=== PATIENT | male | born 1985 | race Caucasian/White ===

== ENCOUNTER 2016-09-14 16:25 | Emergency (ER) | payer OTHER ==
[~2016-09-14] VITALS: Ht 177.8 cm; Wt 75.0 kg
[2016-09-14] MEDS ORDERED: BACITRACIN 0.9 GM PACKET OINTMENT TP ONE (17:00)
[2016-09-14 18:14] VITALS: BP 127/82
== END 2016-09-14 18:17 | disposition home or self-care (01) ==
LOC: EMS 16:26 → EEVIPCON 16:26 → EMS 18:17
DX: S21.211A Laceration without foreign body of right back wall of thorax without penetration into thoracic cavity, initial encounter (principal); Z02.89 Encounter for other administrative examinations; W26.9XXA Contact with unspecified sharp object(s), initial encounter; Y93.89 Activity, other specified; Y92.89 Other specified places as the place of occurrence of the external cause; Y99.8 Other external cause status
CPT/HCPCS: 99283

== ENCOUNTER 2018-01-05 01:03 | Emergency (ER) | payer SELFPAY ==
[~2018-01-05] VITALS: Ht 177.8 cm; Wt 81.8 kg
[2018-01-05 03:47] VITALS: BP 116/60
== END 2018-01-05 04:36 | disposition home or self-care (01) ==
LOC: EMS 01:04
DX: L70.0 Acne vulgaris (principal); F17.210 Nicotine dependence, cigarettes, uncomplicated
CPT/HCPCS: 99281; 99406

== ENCOUNTER 2024-06-07 05:08 | Emergency (ER) | payer OTHER ==
[~2024-06-07] VITALS: Ht 175.3 cm; Wt 77.3 kg
[2024-06-07] MEDS: IBUPROFEN 600 MG TABLET PO ONE (06:15)
[2024-06-07] MEDS ORDERED: IBUP-1492 PO (06:26)
[2024-06-07 06:50] VITALS: BP 129/70; PULSE 78; RESP 16; TEMP 97.3; O2SAT 96
== END 2024-06-07 09:35 | disposition home or self-care (01) ==
LOC: EMS 05:08
DX: S16.1XXA Strain of muscle, fascia and tendon at neck level, initial encounter (principal); F17.210 Nicotine dependence, cigarettes, uncomplicated; V49.88XA Car occupant (driver) (passenger) injured in other specified transport accidents, initial encounter; Y93.89 Activity, other specified; Y92.410 Unspecified street and highway as the place of occurrence of the external cause; Y99.8 Other external cause status
CPT/HCPCS: 72125; 99284; 73030-TC; Z7502; Z7610